=== PATIENT | male | born 2000 | race African-American/Black ===

== ENCOUNTER 2023-05-07 21:55 | Emergency (ER) | payer MEDICAID, OTHER, SELFPAY | END 2023-05-07 23:30 | disposition home or self-care (01) | LOC: MADERS 21:55 | DX: H61.21 Impacted cerumen, right ear (principal); U07.1 COVID-19 | CPT/HCPCS: 69210 ==

== ENCOUNTER 2023-10-28 18:59 | Emergency (ER) | payer SELFPAY ==
[2023-10-28 20:04] LABS: Influenza A by NAA Not Detected (NotDetected); Influenza B by NAA Not Detected (NotDetected); SARS-CoV-2 NAA Rapid Test DETECTED (NotDetected)
== END 2023-10-28 20:20 | disposition home or self-care (01) ==
LOC: MADERS 18:59
DX: U07.1 COVID-19 (principal)
CPT/HCPCS: 99283

== ENCOUNTER 2024-01-22 20:34 | Emergency (ER) | payer SELFPAY ==
[2024-01-22] MEDS ORDERED: Ondansetron ODT 4 MG TAB ONE (20:48)
== END 2024-01-22 20:53 | disposition home or self-care (01) ==
LOC: MADERS 20:34
DX: R11.10 Vomiting, unspecified (principal); R19.7 Diarrhea, unspecified
CPT/HCPCS: 99283; Q0162

== ENCOUNTER 2024-05-23 20:25 | Emergency (ER) | payer SELFPAY ==
[2024-05-23] MEDS ORDERED: Tetracaine 0.5% PF 4 ML BOT ONE (22:23)
== END 2024-05-23 23:25 | disposition home or self-care (01) ==
LOC: MADERS 20:25
DX: H57.89 Other specified disorders of eye and adnexa (principal); L29.9 Pruritus, unspecified
CPT/HCPCS: 99283